=== PATIENT | male | born 1970 | race Two or more races ===

== ENCOUNTER 2022-03-29 18:13 | Emergency (ER) | payer MEDICAID, OTHER ==
[~2022-03-29] VITALS: Ht 172.7 cm; Wt 150.6 kg
[2022-03-29 18:48] VITALS: BP 178/100
== END 2022-03-29 21:02 | disposition left against medical advice (07) ==
LOC: ER 18:13
DX: M25.521 Pain in right elbow (principal); Z53.21 Procedure and treatment not carried out due to patient leaving prior to being seen by health care provider; X58.XXXA Exposure to other specified factors, initial encounter; Y93.89 Activity, other specified; Y92.89 Other specified places as the place of occurrence of the external cause; Y99.8 Other external cause status